=== PATIENT | female | born 1970 | race Caucasian/White ===

== ENCOUNTER 2018-07-12 17:56 | Emergency (ER) | payer OTHER ==
[~2018-07-12] VITALS: Ht 154.9 cm; Wt 73.1 kg
[2018-07-12 18:04] VITALS: Ht 154.9 cm; Wt 73.1 kg
[2018-07-12 20:02] VITALS: BP 172/87
== END 2018-07-12 20:02 | disposition home or self-care (01) ==
LOC: ED 17:56
DX: S16.1XXA Strain of muscle, fascia and tendon at neck level, initial encounter (principal); V43.02XA Car driver injured in collision with other type car in nontraffic accident, initial encounter; Y93.89 Activity, other specified; Y92.481 Parking lot as the place of occurrence of the external cause; Y99.8 Other external cause status
CPT/HCPCS: J1885

== ENCOUNTER 2018-07-19 17:40 | Emergency (ER) | payer OTHER ==
[~2018-07-19] VITALS: Ht 154.9 cm; Wt 73.5 kg
[2018-07-19 18:18] VITALS: Ht 154.9 cm; Wt 73.5 kg
[2018-07-19 20:52] VITALS: BP 140/87
== END 2018-07-19 20:52 | disposition home or self-care (01) ==
LOC: ED 17:40
DX: S13.4XXA Sprain of ligaments of cervical spine, initial encounter (principal); M25.512 Pain in left shoulder; V48.5XXA Car driver injured in noncollision transport accident in traffic accident, initial encounter; Y93.I9 Activity, other involving external motion; Y92.488 Other paved roadways as the place of occurrence of the external cause; Y99.8 Other external cause status
CPT/HCPCS: J1885